=== PATIENT | male | born 1985 | race Two or more races ===

== ENCOUNTER 2021-06-29 19:37 | Emergency (ER) | payer SELFPAY ==
[2021-06-29] MEDS ORDERED: Diphtheria,Pertussis(Acell),Tetanus Vaccine 0.5 ML Syringe IM ONE (21:39)
[2021-06-29] MEDS ORDERED: Lidocaine 1% 5 ML VIAL INJECT ONE ×2 (22:26→22:27)
== END 2021-06-29 23:50 | disposition home or self-care (01) ==
LOC: MW.ED 19:37
DX: S61.411A Laceration without foreign body of right hand, initial encounter (principal); Z23 Encounter for immunization; W26.8XXA Contact with other sharp object(s), not elsewhere classified, initial encounter
CPT/HCPCS: 12002; 73130-26-RT; 73130-RT; 90471; 90715; 99283; 99283-25